=== PATIENT | male | born 1970 | race American Indian/Alaskan Native ===

== ENCOUNTER 2020-06-01 08:09 | Emergency (ER) | payer OTHER, BC ==
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
[2020-06-01 10:41] VITALS: BP 122/76
[2020-06-01] MEDS ORDERED: SUCCINYLCHOLINE CHLORIDE 200 MG/10 ML INJ MDV ONE (12:34)
[2020-06-01] MEDS ORDERED: ETOMIDATE 20 MG/10 ML INJ IV ONE (12:35)
== END 2020-06-01 10:31 | disposition home or self-care (01) ==
LOC: ED 08:09
DX: M25.512 Pain in left shoulder (principal); I10 Essential (primary) hypertension; E78.00 Pure hypercholesterolemia, unspecified; E11.9 Type 2 diabetes mellitus without complications; V89.2XXA Person injured in unspecified motor-vehicle accident, traffic, initial encounter; Y93.89 Activity, other specified; Y92.410 Unspecified street and highway as the place of occurrence of the external cause; Y99.8 Other external cause status
CPT/HCPCS: 99283; J0330